=== PATIENT | male | born 1960 | race African-American/Black ===

== ENCOUNTER 2019-03-19 15:40 | Inpatient (IN) | payer OTHER ==
[2019-03-19 19:16] VITALS: BMI 25.0
--- NOTE | 2019-03-19 21:01 | HP ---
"COWS - Scale Resting Pulse: 0= [place] 80 or Below Sweatin=Flushed/Facial Moisture Restless Observation: 1= Difficult to Sit Still Pupil Size: 2= Moderately Dilated (Pupils = 4 mm) Bone or Joint Aches: 1= Mild Discomfort Runny Nose/ Eye Tearin= Nasal Congestion GI Upset > 30mins: 2= Nausea/Diarrhea (No diarrhea) Tremor Observation: 2= Slight Tremor Visible Yawning Observation: 0= None Anxiety or Irritability: 1=Feels Anxious/Irritable Goose Flesh Skin: 0=Smooth Skin COWS Score: 12 CIWA Score - Admission Criteria [facility]ASAS Guidelines: Admission for Medically Managed Detox: Requires at least one of the followin. CIWA greater than 12 2. Seizures within the past 24 hours 3. Delirium tremens within the past 24 hours 4. Hallucinations within the past 24 hours 5. Acute intervention needed for co occurring medical disorder 6. Acute intervention needed for co occurring psychiatric disorder 7. Severe withdrawal that cannot be handled at a lower level of care (continued vomiting, continued diarrhea, abnormal vital signs) requiring intravenous medication and/or fluids 8. Admission ROS [facility] Chief Complaint: Having opiate withdrawals. Allergies/Adverse Reactions: Allergies Allergy/AdvReac Type Severity Reaction Status Date / Time No Known Allergies Allergy Verified 03/19/19 19:10 History of Present Illness: This the the first admission for this 58 yom for opioid detox. Multiple attempts to stopping use on own. Longest length of sobriety 2 days. Heroin use began at age 40. Intra-nasal. Willing to accept a Narcan kit upon discharge. Cocaine use began at age 20. Denies hx overdose, seizures, or blackouts. PMHx:Denies significant PMH. MHHx; Depression. Denies thoughts of harming self or others. last saw a MH Provider 1 year ago. No MH medications. Search Terms: Charly Lopez, 1960 Search Date: 03/19/2019 08:54:19 PM The Drug Utilization Report below displays all of the controlled substance prescriptions, if any, that your patient has filled in the last twelve months. The information displayed on this report is compiled from pharmacy submissions to the Department, and accurately reflects the information as submitted by the pharmacies. This report was requested by: Ashley Mcclelland | Reference #: [id number] There are no results for the search terms that you entered. Exam Limitations: No Limitations - Ebola screening Have you traveled outside of the country in the last 21 days: No (N) Have you had contact with anyone from an Ebola affected area: No Have you been sick,other than usual withdrawal symptoms: No (Denies measles exposure) Do you have a fever: No - Review of Systems Constitutional: Chills, Diaphoresis, Changes in sleep (When not using - no meds) EENT: reports: Blurred Vision, Nose Congestion, Dental Problems (Missing teeth. No pain at this time. Chews and swallows ok.) Respiratory: reports: No Symptoms reported Cardiac: reports: No Symptoms Reported GI: reports: Nausea, Indigestion (Heart burn on occassion) : reports: No Symptoms Reported Musculoskeletal: reports: Back Pain (when stops opiates) Integumentary: reports: No Symptoms Reported Neuro: reports: Tremors (Mild) Endocrine: reports: No Symptoms Reported Hematology: reports: No Symptoms Reported Psychiatric: reports: Judgement Intact, Orientated x3, Agitated, Anxious, Depressed (Denies thoughts of harming self or others.) Patient History - PPD History Previous Implant?: Yes Documented Results: Negative w/o proof Implanted On Prior [facility] Admission?: No PPD to be Administered?: Yes - Smoking Cessation Smoking history: Current every day smoker Have you smoked in the past 12 months: Yes Aproximately how many cigarettes per day: 10 Hx Chewing Tobacco Use: No Initiated information on smoking cessation: Yes 'Breaking Loose' booklet given: 03/19/19 - Substance & Tx. History Hx Alcohol Use: No Hx Substance Use: Yes Substance Use Type: Cocaine, Heroin Hx Substance Use Treatment: No (This is the first detox. Has been trying on own. ) - Substances abused Cocaine Substance route: Smoking Frequency: Daily Amount used: 1 GRAM Age of first use: 20 Date of last use: 03/17/19 Heroin Other (specify): SNIFF Frequency: Daily Amount used: 3-4 BAGS Age of first use: 40 Date of last use: 03/18/19 Admission Physical Exam BHS - Vital Signs Vital Signs: Vital Signs - 24 hr 03/19/19 19:09 Temperature 98.9 F Pulse Rate 77 Respiratory 18 Rate Blood Pressure 133/88 - Physical General Appearance: Yes: Nourished, Appropriately Dressed, Mild Distress, Tremorous, Sweating (Increased facial moisture), Anxious HEENTM: Yes: EOMI, Hearing grossly Normal, Normocephalic, Normal Voice, BENIGNO ( Pupils = 4 mm), Nasal Congestion Respiratory: Yes: Lungs Clear, Normal Breath Sounds, No Respiratory Distress Neck: Yes: No masses,lesions,Nodules, Supple Breast: Yes: Breast Exam Deferred Cardiology: Yes: Regular Rhythm, S1, S2, Murmur Abdominal: Yes: Non Tender, Flat, Soft, Increased Bowel Sounds Genitourinary: Yes: Within Normal Limits Back: Yes: Normal Inspection Musculoskeletal: Yes: full range of Motion, Gait Steady Extremities: Yes: Normal Capillary Refill, Normal Range of Motion, Tremors ( Mild tremors) Neurological: Yes: chemist pharmaceutical II-XII NML intact, Fully Oriented, Alert, Motor Strength 5/5 Integumentary: Yes: Normal Color, Dry, Warm Lymphatic: Yes: Within Normal Limits - Diagnostic (1) Opioid dependence with withdrawal Current Visit: Yes Status: Acute (2) Cocaine dependence, uncomplicated Current Visit: Yes Status: Chronic (3) Nicotine dependence, uncomplicated Current Visit: Yes Status: Chronic Qualifiers: Nicotine product type: cigarettes Qualified Code(s): F17.210 - Nicotine dependence, cigarettes, uncomplicated Cleared for Admission [facility] - Detox or Rehab [facility] Level of Care: Medically Managed Detox Regimen/Protocol: Methadone Breathalyzer - Breathalyzer Breathalyzer: 0 Urine Drug Screen - Test Device Lot number: [id number] Expiration date: 10/30/20 - Control Is test valid?: Yes - Results Drug screen NEGATIVE: No Urine drug screen results: JOSE-Cocaine, FEN-Fentanyl, MOP-Opiates, OXY-Oxycodone Inpatient Rehab Admission - Rehab Decision to Admit Inpatient rehab admission?: No"
[2019-03-19] MEDS ORDERED: BISMUTH SUBSALICYLATE 524 MG/30 ML UD PO PRN (21:20)
[2019-03-19] MEDS ORDERED: METHOCARBAMOL 500 MG TABLET PO PRN (21:20)
[2019-03-19] MEDS ORDERED: MAGNESIUM CITRATE 300 ML BOTTLE PO PRN (21:20)
[2019-03-19] MEDS ORDERED: guaiFENesin 200 MG/10 ML 10 ML UNIT-DOSE CUPS PO PRN (21:20)
[2019-03-19] MEDS ORDERED: MENTHOL/PHENOL 1 EACH UD MM PRN (21:20)
[2019-03-19] MEDS ORDERED: IBUPROFEN 400 MG TABLET (FP) PO PRN (21:20)
[2019-03-19] MEDS ORDERED: NICOTINE POLACRILEX 2 MG GUM BUC PRN (21:20)
[2019-03-19] MEDS ORDERED: MAGNESIUM HYDROX 2400MG/30ML ORAL SUSPENSION 30 ML CUP PO PRN (21:20)
[2019-03-19] MEDS ORDERED: MAG HYDROX/AL HYDROX/SIMETH 30 ML UNIT-DOSE CUP PO PRN (21:20)
[2019-03-19] MEDS ORDERED: ACETAMINOPHEN 325 MG TABLET (FP) PO PRN ×2 (21:20)
[2019-03-19] MEDS ORDERED: NALOXONE HCL 0.4 MG/ML VIAL IVPUSH PRN (21:25)
[2019-03-19] MEDS: THIAMINE HCL 100 MG TABLET (FP) PO SCH (22:31)
[2019-03-19] MEDS ORDERED: METHADONE HCL 10 MG TABLET (FOR DETOX USE ONLY) PO ONE (23:00)
[2019-03-20 00:04] LABS: EPI CELLS 0.8 /HPF (0-5/HPF); PH,URINE 5.5 (5.0-8.0); URINE APPEARANCE CLEAR; URINE BACTERIA 6.2 /hpf (NEGATIVE); URINE BILIRUBIN NEGATIVE (NEGATIVE); URINE CASTS 1 /lpf (0-8); URINE COLOR YELLOW; URINE GLUCOSE (UA) NEGATIVE (NEGATIVE); URINE KETONE NEGATIVE (NEGATIVE); URINE LEUK ESTERASE NEGATIVE (NEGATIVE); URINE NITRITE NEGATIVE (NEGATIVE); URINE PROTEIN 1+ (NEGATIVE); URINE RBC 1 /hpf (0-4); URINE UROBILINOGEN 0.2 mg/dL (0.2-1.0); URINE WBC 2 /hpf (0-5)
[2019-03-20] MEDS ORDERED: METHADONE HCL 10 MG TABLET (FOR DETOX USE ONLY) PO ONE (10:00)
[2019-03-20 10:14] LABS: HEMATOCRIT 38.9 % (35.4-49); HEMOGLOBIN 13.2 GM/dL (11.7-16.9); MCH 32.1 pg (25.7-33.7); MEAN CELL VOLUME 94.3 fl (80-96); MEAN PLT VOLUME 9.3 fl (7.5-11.1); PLATELET COUNT 191 K/MM3 (134-434); RBC 4.13 M/mm3 (4.00-5.60); RDW 13.4 % (11.9-15.9); WHITE BLOOD COUNT 7.2 K/mm3 (4.0-10.0)
[2019-03-20] MEDS: PRENATAL VITAMINS W/ FOLIC ACID TABLET (FP) PO SCH (10:19)
[2019-03-20] MEDS: NICOTINE 21 MG/24 HOURS TOPICAL PATCH TD SCH (10:19)
[2019-03-20 10:51] LABS: ALBUMIN 3.4 g/dl (3.4-5.0); ALK PHOS 76 U/L (45-117); ANION GAP 7 MMOL/L (8-16); BILIRUBIN,TOTAL 0.4 mg/dL (0.2-1); BLOOD UREA NITROGEN 17 mg/dL (7-18); CHLORIDE 104 mmol/L (98-107); CO2 28 mmol/L (21-32); CREATININE 1.2 mg/dL (0.55-1.3); GLUCOSE,RANDOM 92 mg/dL (74-106); POTASSIUM 3.7 mmol/L (3.5-5.1); SGOT/AST 22 U/L (15-37); SGPT/ALT 22 U/L (13-61); SODIUM 139 mmol/L (136-145); TOT PROT 6.7 g/dl (6.4-8.2)
--- NOTE | 2019-03-20 13:32 | CONSULT ---
[facility] Psychiatric Consult - Data Date of interview: 03/20/19 Admission source: [facility] Identifying data: First admission to [facility] for this 58 y/o AA male self- referred for detoxification (heroin, cocaine). Interviewed at [address] [place] [address]. Patient is single, a father of two, domiciled, unemployed and supported on food stamps. Substance Abuse History: Confirmed by patient in my interview. Details in current [facility] report : Smoking history: Current every day smoker. Have you smoked in the past 12 months: Yes. Aproximately how many cigarettes per day: 10. Hx Chewing Tobacco Use: No. Initiated information on smoking cessation: Yes. 'Breaking Loose' booklet given: 03/19/19. - Substance & Tx. History. Hx Alcohol Use: No. Hx Substance Use: Yes. Substance Use Type: Cocaine, Heroin. Hx Substance Use Treatment: No (This is the first detox. Has been trying on own. ). - Substances abused. Cocaine. Substance route: Smoking. Frequency: Daily. Amount used: 1 GRAM. Age of first use: 20. Date of last use: . Heroin. Other (specify): SNIFF. Frequency: Daily. Amount used: 3-4 BAGS. Age of first use: 40. Date of last use: 03/18/19 Medical History: Patient endorses good general health. Psychiatric History: Patient denies history of psychiatric hospitalizations. Mr Lopez states that he has been diagnosed, in the past, with Mood Disorder and prescribed psychotropic medications (names not recalled). Not taken for more than a year (self-report). No reported history of suicide attempts. Physical/Sexual Abuse/Trauma History: Patient denies. Additional Comment: Urine drug screen results: JOSE-Cocaine, FEN-Fentanyl, MOP- Opiates, OXY-Oxycodone. Noted. Mental Status Exam - Mental Status Exam Alert and Oriented to: Time, Place, Person Cognitive Function: Good Patient Appearance: Well Groomed Mood: Withdrawn Affect: Appropriate, Normal Range Patient Behavior: Fatigued, Appropriate, Cooperative Speech Pattern: Clear Voice Loudness: Normal Thought Process: Intact, Goal Oriented Thought Disorder: Not Present Hallucinations: Denies Suicidal Ideation: Denies Homicidal Ideation: Denies Insight/Judgement: Poor Sleep: Fair Appetite: Good Muscle strength/Tone: Normal Gait/Station: Normal Psychiatric Findings - Problem List ([place] 1, 2,3) (1) Opioid dependence with withdrawal Current Visit: Yes Status: Acute (2) Cocaine dependence, uncomplicated Current Visit: Yes Status: Chronic (3) Nicotine dependence, uncomplicated Current Visit: Yes Status: Chronic Qualifiers: Nicotine product type: cigarettes Qualified Code(s): F17.210 - Nicotine dependence, cigarettes, uncomplicated - Initial Treatment Plan Initial Treatment Plan: Psychoeducation. Groups. Support. NA meetings. Relapse prevention (MAT options) revisited with the patient. Detoxification. Observation.
--- NOTE | 2019-03-20 14:28 | EKG ---
Test Reason : Blood Pressure : / mmHG Vent. Rate : 072 BPM Atrial Rate : 072 BPM P-R Int : 140 ms QRS Dur : 086 ms QT Int : 370 ms P-R-T Axes : 005 068 017 degrees QTc Int : 405 ms NORMAL SINUS RHYTHM NORMAL ECG NO PREVIOUS ECGS AVAILABLE Confirmed by MD ARELIS, JAMAR ([id number]) on 03/20/2019 2:28:18 PM Referred By: Confirmed By:JAMAR INFANTE MD
--- NOTE | 2019-03-20 15:05 | PN ---
BHS COWS - Scale Resting Pulse: 1= [place] 81-100 Sweatin= Chills/Flushing Restless Observation: 0= Sits Still Pupil Size: 0= Normal to Room Light Bone or Joint Aches: 0= None Runny Nose/ Eye Tearin= None GI Upset > 30mins: 1= Stomach Cramp Tremor Observation of Outstretched Hands: 2= Slight Tremor Visible Yawning Observation: 1= 1-2x During Session Anxiety or Irritability: 2=Irritable/Anxious Goose Flesh Skin: 3=Piloerection COWS Score: 11 BHS Progress Note (SOAP) Subjective: Tremors, Sweating, Fatigue, Interrupted Sleep, Stomach Cramping. Objective: PATIENT A & O X 3, OBSERVED AMBULATING ON UNIT UNASSISTED. IN NO ACUTE DISTRESS. 03/20/19 15:03 Vital Signs Temperature 98.0 F 03/20/19 13:40 Pulse Rate 72 03/20/19 13:40 Respiratory Rate 18 03/20/19 13:40 Blood Pressure 109/76 03/20/19 13:40 O2 Sat by Pulse Oximetry (%) Laboratory Tests 03/19/19 03/20/19 03/20/19 22:06 07:48 07:48 WBC 7.2 RBC 4.13 Hgb 13.2 Hct 38.9 MCV 94.3 MCH 32.1 MCHC 34.0 RDW 13.4 Plt Count 191 MPV 9.3 Sodium 139 Potassium 3.7 Chloride 104 Carbon Dioxide 28 Anion Gap 7 L BUN 17 Creatinine 1.2 Creat Clearance w eGFR 62.19 Random Glucose 92 Calcium 9.0 Total Bilirubin 0.4 AST 22 ALT 22 Alkaline Phosphatase 76 Total Protein 6.7 Albumin 3.4 Urine Color Yellow Urine Appearance Clear Urine pH 5.5 Ur Specific [place] 1.016 Urine Protein 1+ H Urine Glucose (UA) Negative Urine Ketones Negative Urine Blood Trace Urine Nitrite Negative Urine Bilirubin Negative Urine Urobilinogen 0.2 Ur Leukocyte Esterase Negative Urine WBC (Auto) 2 Urine RBC (Auto) 1 Urine Casts (Auto) 1 U Epithel Cells (Auto) 0.8 Urine Bacteria (Auto) 6.2 LABS NOTED. RPR RESULT PENDING. 03/20/19 15:04 Assessment: 03/20/19 15:04 WITHDRAWAL SYMPTOMS. Plan: CONTINUE DETOX. INCREASE DAILY PO FLUID INTAKE.
[2019-03-20] MEDS: THIAMINE HCL 100 MG TABLET (FP) PO SCH (22:22)
[2019-03-21] MEDS ORDERED: METHADONE HCL 5 MG TABLET (FOR DETOX USE ONLY) PO ONE (10:00)
[2019-03-21] MEDS: NICOTINE 21 MG/24 HOURS TOPICAL PATCH TD SCH (10:20)
[2019-03-21] MEDS: PRENATAL VITAMINS W/ FOLIC ACID TABLET (FP) PO SCH (10:20)
--- NOTE | 2019-03-21 13:08 | PN ---
BHS COWS - Scale Resting Pulse: 0= [place] 80 or Below Sweatin= Chills/Flushing Restless Observation: 0= Sits Still Pupil Size: 0= Normal to Room Light Bone or Joint Aches: 1= Mild Discomfort Runny Nose/ Eye Tearin= Nasal Congestion GI Upset > 30mins: 1= Stomach Cramp Tremor Observation of Outstretched Hands: 1= Tremor Story, Not Seen Yawning Observation: 1= 1-2x During Session Anxiety or Irritability: 1=Feels Anxious/Irritable Goose Flesh Skin: 0=Smooth Skin COWS Score: 7 BHS Progress Note (SOAP) Subjective: body aches joints pain Objective: 03/21/19 13:17 Vital Signs Temperature 97.1 F L 03/21/19 13:16 Pulse Rate 72 03/21/19 13:16 Respiratory Rate 18 03/21/19 13:16 Blood Pressure 130/82 03/21/19 13:16 O2 Sat by Pulse Oximetry (%) Laboratory Last Values WBC 7.2 K/mm3 (4.0-10.0) 03/20/19 07:48 RBC 4.13 M/mm3 (4.00-5.60) 03/20/19 07:48 Hgb 13.2 GM/dL (11.7-16.9) 03/20/19 07:48 Hct 38.9 % (35.4-49) 03/20/19 07:48 MCV 94.3 fl (80-96) 03/20/19 07:48 MCH 32.1 pg (25.7-33.7) 03/20/19 07:48 MCHC 34.0 g/dl (32.0-35.9) 03/20/19 07:48 RDW 13.4 % (11.9-15.9) 03/20/19 07:48 Plt Count 191 K/MM3 (134-434) 03/20/19 07:48 MPV 9.3 fl (7.5-11.1) 03/20/19 07:48 Sodium 139 mmol/L (136-145) 03/20/19 07:48 Potassium 3.7 mmol/L (3.5-5.1) 03/20/19 07:48 Chloride 104 mmol/L (98-107) 03/20/19 07:48 Carbon Dioxide 28 mmol/L (21-32) 03/20/19 07:48 Anion Gap 7 MMOL/L (8-16) L 03/20/19 07:48 BUN 17 mg/dL (7-18) 03/20/19 07:48 Creatinine 1.2 mg/dL (0.55-1.3) 03/20/19 07:48 Creat Clearance w eGFR 62.19 (>60) 03/20/19 07:48 Random Glucose 92 mg/dL (74-106) 03/20/19 07:48 Calcium 9.0 mg/dL (8.5-10.1) 03/20/19 07:48 Total Bilirubin 0.4 mg/dL (0.2-1) 03/20/19 07:48 AST 22 U/L (15-37) 03/20/19 07:48 ALT 22 U/L (13-61) 03/20/19 07:48 Alkaline Phosphatase 76 U/L (45-117) 03/20/19 07:48 Total Protein 6.7 g/dl (6.4-8.2) 03/20/19 07:48 Albumin 3.4 g/dl (3.4-5.0) 03/20/19 07:48 Urine Color Yellow 03/19/19 22:06 Urine Appearance Clear 03/19/19 22:06 Urine pH 5.5 (5.0-8.0) 03/19/19 22:06 Ur Specific [place] 1.016 (1.010-1.035) 03/19/19 22:06 Urine Protein 1+ (NEGATIVE) H 03/19/19 22:06 Urine Glucose (UA) Negative (NEGATIVE) 03/19/19 22:06 Urine Ketones Negative (NEGATIVE) 03/19/19 22:06 Urine Blood Trace (NEGATIVE) 03/19/19 22:06 Urine Nitrite Negative (NEGATIVE) 03/19/19 22:06 Urine Bilirubin Negative (NEGATIVE) 03/19/19 22:06 Urine Urobilinogen 0.2 mg/dL (0.2-1.0) 03/19/19 22:06 Ur Leukocyte Esterase Negative (NEGATIVE) 03/19/19 22:06 Urine WBC (Auto) 2 /hpf (0-5) 03/19/19 22:06 Urine RBC (Auto) 1 /hpf (0-4) 03/19/19 22:06 Urine Casts (Auto) 1 /lpf (0-8) 03/19/19 22:06 U Epithel Cells (Auto) 0.8 /HPF (0-5/HPF) 03/19/19 22:06 Urine Bacteria (Auto) 6.2 /hpf (NEGATIVE) 03/19/19 22:06 RPR Titer Nonreactive (NONREACTIVE) 03/20/19 07:48 lab noted Assessment: 03/21/19 13:18 withdrawal sx Plan: continue detox
[2019-03-21] MEDS: MELATONIN 5 MG TABLETS PO PRN (22:09)
[2019-03-21] MEDS: THIAMINE HCL 100 MG TABLET (FP) PO SCH (22:09)
[2019-03-22] MEDS ORDERED: METHADONE HCL 5 MG TABLET (FOR DETOX USE ONLY) PO ONE (06:00)
[2019-03-22] MEDS ORDERED: METHADONE HCL 10 MG TABLET (FOR DETOX USE ONLY) PO ONE (10:00)
[2019-03-22] MEDS: PRENATAL VITAMINS W/ FOLIC ACID TABLET (FP) PO SCH (10:02)
[2019-03-22] MEDS: NICOTINE 21 MG/24 HOURS TOPICAL PATCH TD SCH (10:03)
--- NOTE | 2019-03-22 16:31 | PN ---
BHS COWS - Scale Resting Pulse: 0= [place] 80 or Below Sweatin= No chills or Flushing Restless Observation: 0= Sits Still Pupil Size: 0= Normal to Room Light Bone or Joint Aches: 1= Mild Discomfort Runny Nose/ Eye Tearin= None GI Upset > 30mins: 0= None Tremor Observation of Outstretched Hands: 2= Slight Tremor Visible Yawning Observation: 1= 1-2x During Session Anxiety or Irritability: 2=Irritable/Anxious Goose Flesh Skin: 0=Smooth Skin COWS Score: 6 BHS Progress Note (SOAP) Subjective: Interrupted Sleep, Tremors, Body Aches (Mild), Constipation. Objective: PATIENT A & O X 3, OBSERVED AMBULATING ON UNIT UNASSISTED. IN NO ACUTE DISTRESS. 03/22/19 16:30 Vital Signs Temperature 97.7 F 03/22/19 13:28 Pulse Rate 75 03/22/19 13:28 Respiratory Rate 20 03/22/19 13:28 Blood Pressure 141/87 03/22/19 13:28 O2 Sat by Pulse Oximetry (%) Laboratory Tests 03/19/19 03/20/19 03/20/19 22:06 07:48 07:48 WBC 7.2 RBC 4.13 Hgb 13.2 Hct 38.9 MCV 94.3 MCH 32.1 MCHC 34.0 RDW 13.4 Plt Count 191 MPV 9.3 Sodium 139 Potassium 3.7 Chloride 104 Carbon Dioxide 28 Anion Gap 7 L BUN 17 Creatinine 1.2 Creat Clearance w eGFR 62.19 Random Glucose 92 Calcium 9.0 Total Bilirubin 0.4 AST 22 ALT 22 Alkaline Phosphatase 76 Total Protein 6.7 Albumin 3.4 Urine Color Yellow Urine Appearance Clear Urine pH 5.5 Ur Specific [place] 1.016 Urine Protein 1+ H Urine Glucose (UA) Negative Urine Ketones Negative Urine Blood Trace Urine Nitrite Negative Urine Bilirubin Negative Urine Urobilinogen 0.2 Ur Leukocyte Esterase Negative Urine WBC (Auto) 2 Urine RBC (Auto) 1 Urine Casts (Auto) 1 U Epithel Cells (Auto) 0.8 Urine Bacteria (Auto) 6.2 RPR Titer 03/20/19 07:48 WBC RBC Hgb Hct MCV MCH MCHC RDW Plt Count MPV Sodium Potassium Chloride Carbon Dioxide Anion Gap BUN Creatinine Creat Clearance w eGFR Random Glucose Calcium Total Bilirubin AST ALT Alkaline Phosphatase Total Protein Albumin Urine Color Urine Appearance Urine pH Ur Specific [place] Urine Protein Urine Glucose (UA) Urine Ketones Urine Blood Urine Nitrite Urine Bilirubin Urine Urobilinogen Ur Leukocyte Esterase Urine WBC (Auto) Urine RBC (Auto) Urine Casts (Auto) U Epithel Cells (Auto) Urine Bacteria (Auto) RPR Titer Nonreactive LABS NOTED. Assessment: 03/22/19 16:31 WITHDRAWAL SYMPTOMS. Plan: CONTINUE DETOX. PATIENT SCHEDULED FOR D/C TOMORROW.
[2019-03-22] MEDS: THIAMINE HCL 100 MG TABLET (FP) PO SCH (22:05)
[2019-03-22] MEDS: MELATONIN 5 MG TABLETS PO PRN (22:05)
[2019-03-23] MEDS ORDERED: METHADONE HCL 5 MG TABLET (FOR DETOX USE ONLY) PO ONE (06:00)
[2019-03-23 09:33] VITALS: BP 128/84; PULSE 71; TEMP 97.3
--- NOTE | 2019-03-23 18:45 | DS ---
[facility] Detox Discharge Summary Admission Date: 03/19/19 Discharge Date: 03/23/19 - History Present History: Cocaine Dependence, Opioid Dependence Additional Comments: PATIENT GOING HOME FOR TIME BEING, THEN WILL GO TO [place], [place]) IN APPROX. 1 WEEK, WHEN A BED WILL BE AVAILABLE THERE. PATIENT WAS DISCHARGED FROM DETOX UNIT IN STABLE MEDICAL CONDITION. Pertinent Past History: Nicotine Dependence, Depression. - Physical Exam Results Vital Signs: Vital Signs Temperature 97.3 F L 03/23/19 09:32 Pulse Rate 71 03/23/19 09:32 Respiratory Rate 18 03/23/19 09:32 Blood Pressure 128/84 03/23/19 09:32 O2 Sat by Pulse Oximetry (%) Pertinent Admission Physical Exam Findings: WITHDRAWAL SYMPTOMS. Laboratory Tests 03/19/19 03/20/19 03/20/19 22:06 07:48 07:48 WBC 7.2 RBC 4.13 Hgb 13.2 Hct 38.9 MCV 94.3 MCH 32.1 MCHC 34.0 RDW 13.4 Plt Count 191 MPV 9.3 Sodium 139 Potassium 3.7 Chloride 104 Carbon Dioxide 28 Anion Gap 7 L BUN 17 Creatinine 1.2 Creat Clearance w eGFR 62.19 Random Glucose 92 Calcium 9.0 Total Bilirubin 0.4 AST 22 ALT 22 Alkaline Phosphatase 76 Total Protein 6.7 Albumin 3.4 Urine Color Yellow Urine Appearance Clear Urine pH 5.5 Ur Specific [place] 1.016 Urine Protein 1+ H Urine Glucose (UA) Negative Urine Ketones Negative Urine Blood Trace Urine Nitrite Negative Urine Bilirubin Negative Urine Urobilinogen 0.2 Ur Leukocyte Esterase Negative Urine WBC (Auto) 2 Urine RBC (Auto) 1 Urine Casts (Auto) 1 U Epithel Cells (Auto) 0.8 Urine Bacteria (Auto) 6.2 RPR Titer 03/20/19 07:48 WBC RBC Hgb Hct MCV MCH MCHC RDW Plt Count MPV Sodium Potassium Chloride Carbon Dioxide Anion Gap BUN Creatinine Creat Clearance w eGFR Random Glucose Calcium Total Bilirubin AST ALT Alkaline Phosphatase Total Protein Albumin Urine Color Urine Appearance Urine pH Ur Specific [place] Urine Protein Urine Glucose (UA) Urine Ketones Urine Blood Urine Nitrite Urine Bilirubin Urine Urobilinogen Ur Leukocyte Esterase Urine WBC (Auto) Urine RBC (Auto) Urine Casts (Auto) U Epithel Cells (Auto) Urine Bacteria (Auto) RPR Titer Nonreactive LABS NOTED. - Treatment Hospital Course: Detox Protocol Followed, Detoxed Safely, Responded well, Discharged Condition Good, Rehab Referral Accepted Patient has Accepted a Rehab Referral to: [facility] ([place], [place]). - Medication Discharge Medications: Ambulatory Orders Naloxone HCl [Narcan] 4 mg NS ASDIR #1 spray 03/23/19 - Diagnosis (1) Opioid dependence with withdrawal Status: Acute (2) Cocaine dependence, uncomplicated Status: Chronic (3) Nicotine dependence, uncomplicated Status: Chronic Qualifiers: Nicotine product type: cigarettes Qualified Code(s): F17.210 - Nicotine dependence, cigarettes, uncomplicated - AMA Did Patient Leave Against Medical Advice: No
== END 2019-03-23 09:35 | disposition home or self-care (01) | DRG 773 ==
LOC: YASAS 15:40 → Y3N 21:10
PROVIDERS: ADMIT Surgery; ATTEND Surgery
PROC: HZ2ZZZZ Detoxification Services for Substance Abuse Treatment (ICD-10-PCS; principal; 2019-03-19)
DX: F11.23 Opioid dependence with withdrawal (principal); F14.20 Cocaine dependence, uncomplicated; F17.210 Nicotine dependence, cigarettes, uncomplicated; R01.1 Cardiac murmur, unspecified
CPT/HCPCS: 36415; 80053; 81003; 85027; 86593; 93005; 93010